=== PATIENT | male | born 1945 | race Caucasian/White ===

== ENCOUNTER 2023-05-15 11:17 | Outpatient (REF) | payer MEDICARE, OTHER, SELFPAY ==
[2023-05-15 12:32] LABS: INR 4.47; Prothrombin Time 43.5 sec (9.0-11.6)
== END 2023-05-15 11:18 | disposition home or self-care (01) ==
LOC: LAB 11:17
DX: Z51.81 Encounter for therapeutic drug level monitoring (principal); Z79.01 Long term (current) use of anticoagulants
CPT/HCPCS: 36415; 85610

== ENCOUNTER 2023-05-23 12:02 | Outpatient (REF) | payer MEDICARE, OTHER, SELFPAY ==
[2023-05-23 12:44] LABS: INR 2.82; Prothrombin Time 28.2 sec (9.0-11.6)
== END 2023-05-23 12:03 | disposition home or self-care (01) ==
LOC: LAB 12:02
DX: Z79.01 Long term (current) use of anticoagulants (principal)
CPT/HCPCS: 36415; 85610

== ENCOUNTER 2023-05-30 13:16 | Outpatient (REF) | payer MEDICARE, OTHER, SELFPAY ==
[2023-05-30 14:23] LABS: INR 1.99; Prothrombin Time 20.3 sec (9.0-11.6)
== END 2023-05-30 13:17 | disposition home or self-care (01) ==
LOC: LAB 13:16
DX: Z51.81 Encounter for therapeutic drug level monitoring (principal); Z79.01 Long term (current) use of anticoagulants
CPT/HCPCS: 36415; 85610

== ENCOUNTER 2023-06-06 13:25 | Outpatient (REF) | payer MEDICARE, OTHER, SELFPAY ==
[2023-06-06 16:45] LABS: INR 2.13; Prothrombin Time 21.6 sec (9.0-11.6)
== END 2023-06-06 13:26 | disposition home or self-care (01) ==
LOC: LAB 13:25
DX: Z51.81 Encounter for therapeutic drug level monitoring (principal); Z79.01 Long term (current) use of anticoagulants
CPT/HCPCS: 36415; 85610

== ENCOUNTER 2023-06-13 12:43 | Outpatient (REF) | payer MEDICARE, OTHER, SELFPAY ==
[2023-06-13 14:51] LABS: INR 2.61; Prothrombin Time 26.2 sec (9.0-11.6)
== END 2023-06-13 12:44 | disposition home or self-care (01) ==
LOC: LAB 12:43
DX: Z51.81 Encounter for therapeutic drug level monitoring (principal); Z79.01 Long term (current) use of anticoagulants
CPT/HCPCS: 36415; 85610